=== PATIENT | male | born 1980 | race Two or more races ===

== ENCOUNTER 2019-04-14 01:01 | Emergency (ER) | payer SELFPAY ==
[~2019-04-14] VITALS: Ht 193 cm; Wt 130.0 kg
[2019-04-14 01:37] VITALS: BP 131/92
== END 2019-04-14 03:44 | disposition left against medical advice (07) ==
LOC: ER 02:06
DX: H57.89 Other specified disorders of eye and adnexa (principal); Z53.21 Procedure and treatment not carried out due to patient leaving prior to being seen by health care provider

== ENCOUNTER 2022-07-11 09:38 | Emergency (ER) | payer MEDICAID ==
[~2022-07-11] VITALS: Ht 193 cm; Wt 120.0 kg
[2022-07-11] MEDS ORDERED: ONDANSETRON HCL 4MG/2ML INJ IV STA (10:57)
[2022-07-11] MEDS ORDERED: KETOROLAC 30MG/ML VIAL IV STA (10:57)
[2022-07-11] MEDS ORDERED: SODIUM CHLORIDE 0.9% 1,000 ML IV ONE (11:00)
[2022-07-11 11:37] VITALS: BP 152/104
[2022-07-11 12:09] LABS: BASOPHILS % 0.2 % (0.0-2.0); HEMATOCRIT. 44.7 % (42.0-52.0); HEMOGLOBIN. 15.3 g/dL (14.0-18.0); MEAN CORPUSCULAR HEMOGLOBIN 30.8 pg (28.0-32.0); MEAN CORPUSCULAR VOLUME 89.8 fL (80.0-94.0); MEAN PLATELET VOLUME 9.3 fl (7.4-10.4); NEUTROPHILS % 79.8 % (40.0-76.0); PLATELET 258 x1000/uL (130-400); RED BLOOD CELL COUNT 4.98 mill/uL (4.7-6.1); RED CELL DISTRIBUTION WIDTH 12.9 % (11.6-14.6)
[2022-07-11 12:17] LABS: CHLORIDE 105 mEq/L (98-107)
[2022-07-11 12:19] LABS: CLARITY URINE CLOUDY (CLEAR); COLOR URINE ORANGE (YELLOW); KETONES URINE NEGATIVE (NEGATIVE); LEUKOCYTE ESTERASE URINE 1+ (NEGATIVE); NITRITE URINE NEGATIVE (NEGATIVE); OCCULT BLOOD URINE 3+ (NEGATIVE); PH URINE 5.5 (4.5-8.0); PROTEIN URINE 1+ (NEGATIVE); SPECIFIC GRAVITY URINE 1.023 (1.005-1.030); UROBILINOGEN URINE 0.2 E.U./dL (0.2-1.0)
[2022-07-11 12:32] LABS: PROTHROMBIN TIME 10.9 sec (9.6-11.0)
[2022-07-11] MEDS ORDERED: HYDR-4001 MT (13:07)
[2022-07-11] MEDS ORDERED: IBUP-2029 MT (13:07)
[2022-07-11] MEDS ORDERED: ONDA4TAB11 PO (13:07)
[2022-07-11] MEDS ORDERED: TAMS-11 PO (13:07)
== END 2022-07-11 13:28 | disposition home or self-care (01) ==
LOC: ER 09:38
DX: N13.2 Hydronephrosis with renal and ureteral calculous obstruction (principal)
CPT/HCPCS: 36415; 74176; 80053; 81003; 83690; 85025; 85610; 96374; 96375; 99284; J1885; J2405; J7030